=== PATIENT | female | born 1950 | race African-American/Black ===

== ENCOUNTER 2021-09-08 17:57 | Emergency (ER) | payer MEDICARE, MEDICAID ==
[~2021-09-08] VITALS: Ht 167.6 cm; Wt 89.0 kg
[~2021-09-08 17:57] MED LIST: ASPI-825 PO; ATOR20TA86 PO; GLIP5TAB11 PO; LISI5TAB PO; METF-444 PO
[2021-09-08] MEDS ORDERED: ACETAMINOPHEN 500 MG TABLET PO ONE (21:15)
[2021-09-08 22:25] VITALS: BP 123/74
== END 2021-09-08 22:27 | disposition home or self-care (01) ==
LOC: EMS 17:57
DX: S50.02XA Contusion of left elbow, initial encounter (principal); S50.01XA Contusion of right elbow, initial encounter; S80.01XA Contusion of right knee, initial encounter; M25.561 Pain in right knee; M25.522 Pain in left elbow; M25.521 Pain in right elbow; E11.9 Type 2 diabetes mellitus without complications; E78.00 Pure hypercholesterolemia, unspecified; I10 Essential (primary) hypertension; V79.9XXA Bus occupant (driver) (passenger) injured in unspecified traffic accident, initial encounter; Y93.89 Activity, other specified; Y92.89 Other specified places as the place of occurrence of the external cause; Y99.8 Other external cause status
CPT/HCPCS: 99284